=== PATIENT | male | born 1955 | race Caucasian/White ===

== ENCOUNTER 2018-06-12 09:25 | Emergency (ER) | payer BC ==
[2018-06-12] MEDS ORDERED: VALACYCLOVIR 500 MG TAB ONE (10:18)
[2018-06-12] MEDS ORDERED: SMZ./TMP. 800/160 MG TABLET ONE (10:18)
--- NOTE | 2018-06-12 10:38 | ER ---
Nurse's Notes [facility] Name: Genaro Trinh Age: 63 yrs Sex: Male : 1955 Arrival Date: 06/12/2018 Time: 09:30 Bed 13 Private MD: Jovanni Rehman Diagnosis: Zoster without complications;Irritant contact dermatitis Presentation: 06/12 09:53 Presenting complaint: Patient states: has had rash to right upper arm, and right iw shoulder, started , thought it was poison ana, very painful, tender to touch. Transition of care: patient was not received from another setting of care. Onset of symptoms was June 09, 2018. Risk Assessment: Do you want to hurt yourself or someone else? Patient reports no desire to harm self or others. Initial Sepsis Screen: Does the patient meet any 2 criteria? No. Patient's initial sepsis screen is negative. Does the patient have a suspected source of infection? Yes:. Care prior to arrival: None. 09:53 Method Of Arrival: Ambulatory iw 09:53 Acuity: LG 5 iw Historical: - Allergies: 09:57 NKA; iw - Home Meds: 09:57 lisinopril 20 mg Oral tab 1 tab once daily [Active]; Fish Oil 1,000 mg oral cap twice a iw day [Active]; niacin 500 mg Oral cpER [Active]; aspirin 81 mg Oral TbEC 1 tab once daily [Active]; - PMHx: 09:57 Hypertension; iw - PSHx: 09:57 Heart stents; Cholecystectomy; Appendectomy; iw - Immunization history:: Adult Immunizations not up to date. - Social history:: Smoking status: Patient/guardian denies using tobacco, the patient reports quitting approximately 16 years ago. - Ebola Screening: : Patient negative for fever greater than or equal to 101.5 degrees Fahrenheit, and additional compatible Ebola Virus Disease symptoms Patient denies exposure to infectious person Patient denies travel to an Ebola-affected area in the 21 days before illness onset No symptoms or risks identified at this time. - Family history:: not pertinent. Screenin:40 Abuse screen: Denies threats or abuse. Nutritional screening: No deficits noted. em Tuberculosis screening: No symptoms or risk factors identified. Fall Risk None identified. Assessment: 10:27 General: Appears in no apparent distress. comfortable, Behavior is calm, cooperative. em Pain: Complains of pain in right tricep and right antecubital area. Neuro: Level of Consciousness is awake, alert, obeys commands, Oriented to person, place, time, situation. Cardiovascular: Capillary refill < 3 seconds Patient's skin is warm and dry. Respiratory: Airway is patent Respiratory effort is even, unlabored, Respiratory pattern is regular, symmetrical, Breath sounds are clear bilaterally. GI: Abdomen is round non-distended. : No signs and/or symptoms were reported regarding the genitourinary system. EENT: No signs and/or symptoms were reported regarding the EENT system. Derm: Skin is intact, Rash noted that is itchy, red, on right tricep and right antecubital area painful. Musculoskeletal: Range of motion: intact in all extremities. 10:35 Reassessment: Patient appears in no apparent distress at this time. Patient and/or iw family updated on plan of care and expected duration. Pain level reassessed. I agree with above assessment by Christian May LVN. Vital Signs: 09:58 BP 176 / 81; Pulse 75; Resp 16; Temp 98.2; Pulse Ox 97% on R/A; Weight 78.93 kg; Height iw 5 ft. 4 in. (162.56 cm); Pain 9/10; 10:53 BP 156 / 85; Pulse 64; Resp 18; Pulse Ox 100% on R/A; Pain 7/10; em 09:58 Body Mass Index 29.87 (78.93 kg, 162.56 cm) iw ED Course: 09:30 Patient arrived in ED. mr 09:30 Jovanni Rehman MD is Private Physician. mr 09:48 Leroy Norris MD is Attending Physician. trevor 09:54 Triage completed. iw 09:58 Arm band placed on. iw 10:12 Polly Palacios, DICK is Primary Nurse. hb 10:26 EKG done, by ED staff, reviewed by Leroy Norris MD. em 10:38 Jovanni Rehman MD is Referral Physician. trevor 10:40 Patient has correct armband on for positive identification. Placed in gown. Bed in low em position. Call light in reach. Side rails up X2. 10:46 X-ray completed. Portable x-ray completed in exam room. Patient tolerated procedure tm4 well. 10:48 Chest Single View XRAY In Process Unspecified. EDMS 11:06 No provider procedures requiring assistance completed. Patient did not have IV access em during this emergency room visit. Administered Medications: 10:25 Drug: Bactrim (160 mg-800 mg (DS) 1 tablet Route: PO; em 11:00 Follow up: Response: No adverse reaction em 10:25 Drug: Valtrex 1000 mg Route: PO; em 11:00 Follow up: Response: No adverse reaction em Outcome: 10:38 Discharge ordered by MD. murray 11:06 Discharged to home ambulatory. em 11:06 Condition: good 11:06 Discharge instructions given to patient, Instructed on discharge instructions, follow up and referral plans. no drinking with medication, no driving heavy equipment, medication usage, Demonstrated understanding of instructions, follow-up care, medications, Prescriptions given X 5 11:06 Patient left the ED. em Signatures: Dispatcher [employer] EDMS Leroy Norris MD MD cha Rivera, Maria Kina Lynne tm4 Christian May, SPARE PERSON SPARE PERSON em Lisa Page, RN RN Polly Palacios, DICK RN
--- NOTE | 2018-06-12 10:39 | EDPHYS ---
Physician Documentation [facility] Name: Genaro Trinh Age: 63 yrs Sex: Male : 1955 Arrival Date: 06/12/2018 Time: 09:30 Bed 13 Private MD: Jovanni Rehman ED Physician Leroy Norirs HPI: 06/12 10:11 This 63 yrs old Male presents to ER via Ambulatory with complaints of Skin trevor Sore(s). 10:11 The patient or guardian complains of pain, a rash, tenderness. The complaints affect trevor the right antecubital area and right tricep. Context: The problem was sustained at an unknown location. Onset: The symptoms/episode began/occurred 3 day(s) ago. Treatment prior to arrival includes: no previous treatment. Modifying factors: The symptoms are alleviated by remaining still, the symptoms are aggravated by movement. The patient or guardian reports chest pain that is located primarily in the anterior chest wall, right. Onset: 3 day(s) ago. Historical: - Allergies: :57 NKA; iw - Home Meds: :57 lisinopril 20 mg Oral tab 1 tab once daily [Active]; Fish Oil 1,000 mg oral cap twice a iw day [Active]; niacin 500 mg Oral cpER [Active]; aspirin 81 mg Oral TbEC 1 tab once daily [Active]; - PMHx: :57 Hypertension; iw - PSHx: :57 Heart stents; Cholecystectomy; Appendectomy; iw - Immunization history:: Adult Immunizations not up to date. - Social history:: Smoking status: Patient/guardian denies using tobacco, the patient reports quitting approximately 16 years ago. - Ebola Screening: : Patient negative for fever greater than or equal to 101.5 degrees Fahrenheit, and additional compatible Ebola Virus Disease symptoms Patient denies exposure to infectious person Patient denies travel to an Ebola-affected area in the 21 days before illness onset No symptoms or risks identified at this time. - Family history:: not pertinent. ROS: 10:11 Constitutional: Negative for fever, chills, and weight loss, Eyes: Negative for injury, trevor pain, redness, and discharge, ENT: Negative for injury, pain, and discharge, Neck: Negative for injury, pain, and swelling, Cardiovascular: Negative for chest pain, palpitations, and edema, Respiratory: Negative for shortness of breath, cough, wheezing, and pleuritic chest pain, Abdomen/GI: Negative for abdominal pain, nausea, vomiting, diarrhea, and constipation, Back: Negative for injury and pain, : Negative for injury, bleeding, discharge, and swelling, Neuro: Negative for headache, weakness, numbness, tingling, and seizure, Psych: Negative for depression, anxiety, suicide ideation, homicidal ideation, and hallucinations, Allergy/Immunology: Negative for hives, rash, and allergies, Endocrine: Negative for neck swelling, polydipsia, polyuria, polyphagia, and marked weight changes, Hematologic/Lymphatic: Negative for swollen nodes, abnormal bleeding, and unusual bruising. 10:11 Skin: Positive for rash. Exam: 10:11 Constitutional: This is a well developed, well nourished patient who is awake, alert, trevor and in no acute distress. Head/Face: Normocephalic, atraumatic. Eyes: Pupils equal round and reactive to light, extra-ocular motions intact. Lids and lashes normal. Conjunctiva and sclera are non-icteric and not injected. Cornea within normal limits. Periorbital areas with no swelling, redness, or edema. ENT: Nares patent. No nasal discharge, no septal abnormalities noted. Tympanic membranes are normal and external auditory canals are clear. Oropharynx with no redness, swelling, or masses, exudates, or evidence of obstruction, uvula midline. Mucous membranes moist. Neck: Trachea midline, no thyromegaly or masses palpated, and no cervical lymphadenopathy. Supple, full range of motion without nuchal rigidity, or vertebral point tenderness. No Meningismus. Chest/axilla: Normal chest wall appearance and motion. Nontender with no deformity. No lesions are appreciated. Cardiovascular: Regular rate and rhythm with a normal S1 and S2. No gallops, murmurs, or rubs. Normal PMI, no JVD. No pulse deficits. Respiratory: Lungs have equal breath sounds bilaterally, clear to auscultation and percussion. No rales, rhonchi or wheezes noted. No increased work of breathing, no retractions or nasal flaring. Abdomen/GI: Soft, non-tender, with normal bowel sounds. No distension or tympany. No guarding or rebound. No evidence of tenderness throughout. Back: No spinal tenderness. No costovertebral tenderness. Full range of motion. Male : Normal genitalia with no discharge or lesions. MS/ Extremity: Pulses equal, no cyanosis. Neurovascular intact. Full, normal range of motion. Neuro: Awake and alert, GCS 15, oriented to person, place, time, and situation. Cranial nerves II-XII grossly intact. Motor strength 5/5 in all extremities. Sensory grossly intact. Cerebellar exam normal. Normal gait. Psych: Awake, alert, with orientation to person, place and time. Behavior, mood, and affect are within normal limits. 10:11 Skin: zoster. 10:39 Musculoskeletal/extremity: DVT Exam: no swelling, negative Homans' sign noted on exam, trevor no appreciated bluish discoloration, pain, tenderness, erythema, increased warmth. Vital Signs: 09:58 BP 176 / 81; Pulse 75; Resp 16; Temp 98.2; Pulse Ox 97% on R/A; Weight 78.93 kg; Height iw 5 ft. 4 in. (162.56 cm); Pain 9/10; 10:53 BP 156 / 85; Pulse 64; Resp 18; Pulse Ox 100% on R/A; Pain 7/10; em 09:58 Body Mass Index 29.87 (78.93 kg, 162.56 cm) iw MDM: 09:48 Patient medically screened. [facility] 10:11 Data reviewed: vital signs, nurses notes, EKG, radiologic studies, plain films. [facility] 06/12 10:10 Order name: Chest Single View XRAY [facility] 06/12 10:10 Order name: EKG; Complete Time: 10:10 [facility] 06/12 10:10 Order name: EKG - Nurse/Tech; Complete Time: 10:26 [facility] Administered Medications: 10:25 Drug: Bactrim (160 mg-800 mg (DS) 1 tablet Route: PO; em 11:00 Follow up: Response: No adverse reaction em 10:25 Drug: Valtrex 1000 mg Route: PO; em 11:00 Follow up: Response: No adverse reaction em Disposition: 06/12/18 10:38 Discharged to Home. Impression: Zoster without complications, Irritant contact dermatitis. - Condition is Stable. - Discharge Instructions: Contact Dermatitis, Poison Crimora Dermatitis, Shingles, Shingles, [id number], Contact Dermatitis, [id number]-[id number], Poison Crimora Dermatitis, [id number]. - Prescriptions for Hydroxyzine HCl 25 mg Oral Tablet - take 1 tablet by ORAL route every 6 hours As needed; 30 tablet. Tylenol- Codeine #3 300-30 mg Oral Tablet - take 2 tablet by ORAL route every 6 hours As needed; 30 tablet. Valtrex 1 g Oral Tablet - take 1 tablet by ORAL route every 8 hours for 7 days; 21 tablet. Bactrim DS 800- 160 mg Oral Tablet - take 1 tablet by ORAL route every 12 hours for 10 days; 20 tablet. Bactroban 2 % Topical Ointment - Apply to affected area 1 application by TOPICAL route every 12 hours; 30 gram. - Medication Reconciliation Form, Thank You Letter, Antibiotic Education, Prescription Opioid Use form. - Follow up: Jovanni Rehman; When: 2 - 3 days; Reason: Recheck today's complaints, Continuance of care, Re-evaluation by your physician. - Problem is new. - Symptoms have improved. Signatures: Dispatcher [employer] Leroy Caro MD MD cha Munoz, Edgar, TIRE CENTER MANAGER TIRE CENTER MANAGER em Lisa Page RN RN iw Corrections: (The following items were deleted from the chart) 11:06 10:38 06/12/2018 10:38 Discharged to Home. Impression: Zoster without complications; em Irritant contact dermatitis. Condition is Stable. Discharge Instructions: Contact Dermatitis, Poison Crimora Dermatitis, Shingles, Shingles, [id number]-[id number]-[id number], Contact Dermatitis, Lmtw-wt-Sldo, Poison Crimora Dermatitis, [id number]. Prescriptions for Hydroxyzine HCl 25 mg Oral Tablet - take 1 tablet by ORAL route every 6 hours As needed; 30 tablet, Tylenol-Codeine #3 300-30 mg Oral Tablet - take 2 tablet by ORAL route every 6 hours As needed; 30 tablet, Valtrex 1 g Oral Tablet - take 1 tablet by ORAL route every 8 hours for 7 days; 21 tablet, Bactrim DS 800-160 mg Oral Tablet - take 1 tablet by ORAL route every 12 hours for 10 days; 20 tablet. and Forms are Medication Reconciliation Form, Thank You Letter, Antibiotic Education, Prescription Opioid Use. Follow up: Jovanni Rehman; When: 2 - 3 days; Reason: Recheck today's complaints, Continuance of care, Re-evaluation by your physician. Problem is new. Symptoms have improved. trevor
[2018-06-12 11:10] VITALS: TEMP 98.2
[2018-06-12 11:11] VITALS: BP 156/85; O2SAT 100
--- NOTE | 2018-06-12 11:57 | RAD REPORT ---
EXAM DESCRIPTION: RAD - Chest Single View - 06/12/2018 10:48 am CLINICAL HISTORY: Right sided chest, shoulder and arm pain COMPARISON: August 2012 TECHNIQUE: AP portable chest image was obtained 1037 hours . FINDINGS: Lungs are clear. Heart and vasculature are normal. No measurable pleural effusion and no p neumothorax. No gross bony abnormality seen. No acute aortic findings suspected. IMPRESSION: No acute cardiopulmonary process. No significant interval change.
--- NOTE | 2018-06-13 07:41 | EKG ---
Test Date: 2018-06-12 Test Time: 10:19:34 Laser Beam Machine Operator: JIGNESH MEASUREMENT RESULTS: Intervals: Rate: 65 OR: 152 QRSD: 78 QT: 386 QTc: 401 [place]: P: 77 OR: 152 QRS: 68 T: 53 INTERPRETIVE STATEMENTS: Normal sinus rhythm Normal ECG Compared to ECG 04/08/2016 09:53:29 Sinus bradycardia no longer present Electronically Signed On 06-13-18 07:40:41 CDT by Saad Clay
== END 2018-06-12 11:06 | disposition home or self-care (01) ==
LOC: ER 09:25
DX: B02.9 Zoster without complications (principal); L24.9 Irritant contact dermatitis, unspecified cause; I10 Essential (primary) hypertension; Z79.82 Long term (current) use of aspirin; Z95.818 Presence of other cardiac implants and grafts
CPT/HCPCS: 71045; 93005; 99284

== ENCOUNTER 2018-07-12 05:43 | Emergency (ER) | payer BC ==
--- NOTE | 2018-07-12 06:22 | ER ---
Nurse's Notes [facility] Name: Genaro Trinh Age: 63 yrs Sex: Male : 1955 Arrival Date: 07/12/2018 Time: 05:44 Bed 5 Private MD: Jovanni Rehman Diagnosis: Dermatitis, unspecified-. Presentation: 07/12 05:53 Presenting complaint: Patient states: he has a rash on his L inner elbow and is aa1 concerned it may be shingles. States last time this happened it ended up being shingles and his PCP told him to have it checked right away if it happened again. Transition of care: patient was not received from another setting of care. Onset of symptoms was July 12, 2018. Risk Assessment: Do you want to hurt yourself or someone else? Patient reports no desire to harm self or others. Initial Sepsis Screen: Does the patient meet any 2 criteria? No. Patient's initial sepsis screen is negative. Does the patient have a suspected source of infection? No. Patient's initial sepsis screen is negative. Care prior to arrival: None. 05:53 Method Of Arrival: Ambulatory aa1 05:53 Acuity: LG 5 aa1 Historical: - Allergies: 05:57 NKA; aa1 - Home Meds: 05:57 aspirin 81 mg Oral TbEC 1 tab once daily [Active]; Fish Oil 1,000 mg Oral cap twice a aa1 day [Active]; lisinopril 20 mg Oral tab 1 tab once daily [Active]; niacin 500 mg Oral cpER [Active]; - PMHx: 05:57 Hypertension; aa1 - PSHx: 05:57 Heart stents; Cholecystectomy; Appendectomy; aa1 - Immunization history:: Flu vaccine is not up to date. - Social history:: Smoking status: Patient/guardian denies using tobacco, the patient reports quitting approximately 15 years ago. - Ebola Screening: : No symptoms or risks identified at this time. Screenin:58 Abuse screen: Denies threats or abuse. Denies injuries from another. Nutritional lp1 screening: No deficits noted. Tuberculosis screening: No symptoms or risk factors identified. Fall Risk None identified. Assessment: 05:54 General: Appears in no apparent distress. Behavior is calm, cooperative, appropriate lp1 for age. Pain: Denies pain. Neuro: Level of Consciousness is awake, alert, obeys commands. Cardiovascular: Patient's skin is warm and dry. Respiratory: No deficits noted. GI: No deficits noted. : No deficits noted. EENT: No deficits noted. Derm: Rash noted that is red, raised, Denies itching, burning, pain. Musculoskeletal: No deficits noted. Vital Signs: 05:57 BP 179 / 82; Pulse 70; Resp 16; Temp 98.0; Pulse Ox 96% on R/A; Weight 78.02 kg; Height aa1 5 ft. 5 in. (165.10 cm); Pain 0/10; 05:57 Body Mass Index 28.62 (78.02 kg, 165.10 cm) aa1 ED Course: 05:44 Patient arrived in ED. es 05:46 Rosio Schafer, RN is Primary Nurse. lp1 05:46 Jovanni Rehman MD is Private Physician. es 05:54 Mehran Banda MD is Attending Physician. tw4 05:54 Triage completed. aa1 05:57 Patient has correct armband on for positive identification. lp1 05:57 Patient placed in an exam room. aa1 05:57 No provider procedures requiring assistance completed. Patient did not have IV access lp1 during this emergency room visit. 06:03 Leroy Chavez [facility] is [facility]. cp 06:03 Mehran Banda MD is Attending Physician. cp Administered Medications: No medications were administered Outcome: 06:21 Discharge ordered by MD. cp 06:34 Discharged to home ambulatory. lp1 06:34 Condition: good 06:34 Discharge instructions given to patient, Instructed on discharge instructions, follow up and referral plans. medication usage, Demonstrated understanding of instructions, follow-up care, medications, Prescriptions given X 1. 06:34 Patient left the ED. lp1 Signatures: Starr Schaffer RN RN aa1 Kayla Patel Laura, RN RN lp1 Leroy Chavez PA PA cp Wadley, Terrence, MD MD tw4
--- NOTE | 2018-07-12 06:22 | EDPHYS ---
Physician Documentation [facility] Name: Genaro Trinh Age: 63 yrs Sex: Male : 1955 Arrival Date: 07/12/2018 Time: 05:44 Bed 5 Private MD: Jovanni Rehman ED Physician Mehran Banda HPI: 07/12 06:12 This 63 yrs old Male presents to ER via Ambulatory with complaints of Rash. cp 06:12 The patient's rash thought to be caused by an unknown cause. The rash is located on the cp antecubital area left arm. The rash can be described as erythematous. Onset: The symptoms/episode began/occurred last night. Associated signs and symptoms: Pertinent positives: burning sensation, Pertinent negatives: fever, itching. Severity of symptoms: in the emergency department the symptoms are unchanged. Historical: - Allergies: 05:57 NKA; aa1 - Home Meds: 05:57 aspirin 81 mg Oral TbEC 1 tab once daily [Active]; Fish Oil 1,000 mg Oral cap twice a aa1 day [Active]; lisinopril 20 mg Oral tab 1 tab once daily [Active]; niacin 500 mg Oral cpER [Active]; - PMHx: 05:57 Hypertension; aa1 - PSHx: 05:57 Heart stents; Cholecystectomy; Appendectomy; aa1 - Immunization history:: Flu vaccine is not up to date. - Social history:: Smoking status: Patient/guardian denies using tobacco, the patient reports quitting approximately 15 years ago. - Ebola Screening: : No symptoms or risks identified at this time. ROS: 06:15 Eyes: Negative for injury, pain, redness, and discharge. cp 06:15 Constitutional: Negative for body aches, chills, fever, poor PO intake. 06:15 ENT: Negative for drainage from ear(s), ear pain, sore throat, difficulty swallowing, difficulty handling secretions. 06:15 Cardiovascular: Negative for chest pain, edema, palpitations. 06:15 Respiratory: Negative for cough, shortness of breath, wheezing. 06:15 Abdomen/GI: Negative for abdominal pain, nausea, vomiting, and diarrhea. 06:15 Skin: Positive for rash, of the left antecubital area. 06:15 All other systems are negative. Exam: 06:16 Head/Face: Normocephalic, atraumatic. cp 06:16 Constitutional: The patient appears in no acute distress, alert, awake, non-diaphoretic, non-toxic, well developed, well nourished. 06:16 Eyes: Periorbital structures: appear normal, Conjunctiva: normal, Lids and lashes: appear normal, bilaterally. 06:16 ENT: External ear(s): are unremarkable, Nose: is normal, Mouth: Lips: moist, Oral mucosa: moist, Posterior pharynx: is normal, airway is patent, no erythema, no exudate. 06:16 Chest/axilla: Inspection: normal. 06:16 Cardiovascular: Rate: normal, Rhythm: regular. 06:16 Respiratory: the patient does not display signs of respiratory distress, Respirations: normal, no use of accessory muscles, no retractions, no splinting, no tachypnea, labored breathing, is not present. 06:16 Abdomen/GI: Exam negative for discomfort, distension, guarding, Inspection: abdomen appears normal. 06:16 Skin: rash can be described as erythematous, papular, raised, on the left antecubital area. Vital Signs: 05:57 BP 179 / 82; Pulse 70; Resp 16; Temp 98.0; Pulse Ox 96% on R/A; Weight 78.02 kg; Height aa1 5 ft. 5 in. (165.10 cm); Pain 0/10; 05:57 Body Mass Index 28.62 (78.02 kg, 165.10 cm) aa1 MDM: 05:54 Patient medically screened. tw4 06:18 Data reviewed: vital signs, nurses notes, and as a result, I will discharge patient. cp Administered Medications: No medications were administered Disposition: 07:06 Co-signature as Attending Physician, Leroy DELUCA I agree with the assessment and plan tw4 of care. Attestation: The patient's history, exam findings, diagnostics, and a summary of any interventions or procedures was reviewed in detail with Leroy DELUCA. Disposition: 07/12/18 06:21 Discharged to Home. Impression: Dermatitis, unspecified - .. - Condition is Stable. - Discharge Instructions: Rash. - Prescriptions for Triamcinolone Acetonide 0.5 % Topical Cream - apply 1 application by TOPICAL route 2 times per day As needed apply to area of rash as directed; 1 tube. - Medication Reconciliation Form, Thank You Letter, Antibiotic Education, Prescription Opioid Use form. - Follow up: Private Physician; When: 1 - 2 days; Reason: Recheck today's complaints. - Problem is new. - Symptoms are unchanged. Signatures: Starr Schaffer RN RN aa1 Rosio Schafer RN RN lp1 Leroy Chavez PA PA cp Wadley, Terrence, MD MD tw4 Corrections: (The following items were deleted from the chart) 06:34 06:21 07/12/2018 06:21 Discharged to Home. Impression: Dermatitis, unspecified - .. lp1 Condition is Stable. Forms are Medication Reconciliation Form, Thank You Letter, Antibiotic Education, Prescription Opioid Use. Follow up: Private Physician; When: 1 - 2 days; Reason: Recheck today's complaints. Problem is new. Symptoms are unchanged. cp
[2018-07-12 06:45] VITALS: BP 179/82; TEMP 98; O2SAT 96
== END 2018-07-12 06:34 | disposition home or self-care (01) ==
LOC: ER 05:43
DX: L30.9 Dermatitis, unspecified (principal); I10 Essential (primary) hypertension; Z79.82 Long term (current) use of aspirin; Z95.818 Presence of other cardiac implants and grafts
CPT/HCPCS: 99282

== ENCOUNTER 2019-04-18 07:19 | Day surgery (SDC) | payer BC, OTHER ==
--- NOTE | 2019-04-13 14:11 | RAD REPORT ---
EXAM DESCRIPTION: RAD - Chest Pa And Lat (2 Views) - 04/13/2019 2:03 pm CLINICAL HISTORY: Preop chest, pending cardiac catheterization, history of midline and left-sided ch est pain COMPARISON: May 2018 TECHNIQUE: PA and lateral views of the chest were obtained. FINDINGS: The lungs are clear of an acute lung parenchymal process. Interstitial pattern is similar to comparison. Heart size is normal and central vasculature is within normal limits. No pleural ef fusion or pneumothorax seen. No acute bony finding noted. No aortic abnormality. IMPRESSION: No acute cardiopulmonary process. No significant interval change.
[2019-04-13 14:58] LABS: Potassium 3.9 mmol/L (3.5-5.1)
[2019-04-14 08:47] LABS: Absolute Lymphocytes (CBC) 2.5 K/uL (0.7-4.9); Absolute Monocytes 0.7 K/uL (0.1-1.3); Absolute Neutrophil 4.3 K/uL (1.8-8.0); Basophils % 0.7 % (0-1.3); Eosinophils % 2.3 % (0-4.4); Hematocrit 47.2 % (39.6-49.0); Lymphocytes % 31.6 % (15.3-44.8); MPV 9.9 fL (7.6-11.3); Monocytes % 9.4 % (3.3-12.3); RBC Red Blood Cell Count 5.15 M/uL (4.33-5.43)
[2019-04-14 08:48] LABS: Protime INR 0.97
[2019-04-18] MEDS ORDERED: NA CHLORIDE 0.9% 500 ML ONE (07:59)
[2019-04-18] MEDS ORDERED: LIDOCAINE 1% 20 ML MDV ONE (08:36)
[2019-04-18] MEDS ORDERED: HEPA 1000U/500MLS 1,000 UNIT/500 ML BAG IV ONE (08:36)
[2019-04-18] MEDS ORDERED: MIDAZOLAM HCL 2 MG/2 ML INJ ONE (08:56)
[2019-04-18] MEDS ORDERED: FENTANYL CITR 100 MCG/2 ML ONE (08:57)
[2019-04-18] MEDS ORDERED: ATROPINE SULF 1 MG/10 ML SYR IV ONE (08:57)
[2019-04-18] MEDS ORDERED: NA CHLORIDE 0.9% 0 ML ONE (08:57)
[2019-04-18 10:29] VITALS: TEMP 97.6
[2019-04-18 10:54] VITALS: O2SAT 96
[2019-04-18 11:26] VITALS: BP 124/69
--- NOTE | 2019-04-18 17:51 | OP ---
Date of Procedure: 04/18/2019 Surgeon: Jakub Duran MD Indication: The patient is a 64-year-old, who is a patient of Dr. Rehman and mine with history of cor onary artery disease, multiple coronary artery stents in the past, abnormal stress test, chest pain, admitted as an outpatient for a heart catheterization. Procedures: Heart catheterization with selective coronary arteriogram. Procedure In Detail: He was prepped and draped in the routine sterile fashion, given 2 mg of Versed for IV sedation. Right common femoral artery access obtained with a 6-[place] sheath. Angiography th ere was normal. Angio-Seal was used to close the case. Coronary angiography done with left and righ t Andreas catheter showed multiple hkhe-lf-zeoocfuw plaquing areas throughout his coronaries, but no focal stenosis. All his stents were open. The patient tolerated the procedure well. There were no complications. Blood Loss: 5 cc. Anesthesia: Total conscious sedation is 30 minutes. Final Diagnosis: Moderate coronary artery disease. Plan: Plan is for medical therapy, may add a beta-monet to his regimen or Imdur depending how he f eels. He is already on niacin and fish oil. The patient will be going home today after 2 hours of b edrest. Nurses: Emiliano Lay and Ms. Pierre. CLAUDIA/ILDA Voice ID: [id number] Report ID: [id number]
== END 2019-04-18 10:39 | disposition home or self-care (01) ==
LOC: CCL 07:19
PROC: B201YZZ Plain Radiography of Multiple Coronary Arteries using Other Contrast (ICD-10-PCS; principal; 2019-04-18)
DX: I25.110 Atherosclerotic heart disease of native coronary artery with unstable angina pectoris (principal); I10 Essential (primary) hypertension; J44.9 Chronic obstructive pulmonary disease, unspecified; Z95.5 Presence of coronary angioplasty implant and graft; E78.6 Lipoprotein deficiency; Z87.891 Personal history of nicotine dependence; Z82.49 Family history of ischemic heart disease and other diseases of the circulatory system
CPT/HCPCS: 36415; 71046; 80048; 85025; 85610; 85730; 93454; C1760; C1893; J0583; J2250; J3010

== ENCOUNTER 2019-11-30 13:51 | Emergency (ER) | payer BC, OTHER ==
[2019-11-30] MEDS ORDERED: NA CHLORIDE 0.9% 1,000 ML ONE (14:41)
[2019-11-30 14:47] LABS: Absolute Lymphocytes (CBC) 1.3 K/uL (0.7-4.9); Basophils % 0.5 % (0-1.3); Hematocrit 46.6 % (39.6-49.0); Lymphocytes % 11.8 % (15.3-44.8); MPV 9.7 fL (7.6-11.3); RBC Red Blood Cell Count 5.08 M/uL (4.33-5.43)
--- NOTE | 2019-11-30 14:52 | RAD REPORT ---
EXAM DESCRIPTION: CT - Head Brain Wo Cont - 11/30/2019 2:37 pm CLINICAL HISTORY: Syncope COMPARISON: None. TECHNIQUE: Axial 5 mm thick images of the head were obtained without IV contrast. All CT scans are performed using dose optimization technique as appropriate and may include automated exposure control or mA/KV adjustment according to patient size. FINDINGS: No intracranial hemorrhage, mass, edema or shift of mid-line structures. No acute infarcti on changes seen. No abnormal extra-axial fluid collections. Ventricles are normal. Mastoid air cells and visualized portions of the paranasal sinuses are clear. No acute bony findings. IMPRESSION: Negative non-contrast CT head examination.
[2019-11-30 14:54] LABS: Protime INR 1.04
--- NOTE | 2019-11-30 14:56 | RAD REPORT ---
EXAM DESCRIPTION: RAD - Chest Single View - 11/30/2019 2:28 pm CLINICAL HISTORY: Cough, syncope COMPARISON: March 2019 TECHNIQUE: AP portable chest image was obtained 1421 hours . FINDINGS: Lungs are clear. Heart and vasculature are normal. No measurable pleural effusion and no p neumothorax. No acute bony abnormality seen. No acute aortic findings suspected. IMPRESSION: No acute cardiopulmonary process.
[2019-11-30 15:06] LABS: ALT/SGPT 36 U/L (12-78); AST/SGOT 22 U/L (15-37); Albumin 4.1 g/dL (3.4-5.0); Alkaline Phosphatase 36 U/L (45-117); BUN Blood Urea Nitrogen 15 mg/dL (7-18); Bicarbonate 28 mmol/L (21-32); Bilirubin Direct 0.2 mg/dL (0-0.2); Glucose Level 127 mg/dL (74-106); Magnesium 2.3 mg/dL (1.8-2.4); NT PRO-BNP 56 pg/mL (<125); Potassium 4.1 mmol/L (3.5-5.1); Protein, Total 7.9 g/dL (6.4-8.2); Sodium Level 141 mmol/L (136-145); Troponin (Emerg Dept Use Only) < 0.02 ng/mL (0.0-0.045)
[2019-11-30] MEDS ORDERED: ONDANSETRON 4 MG/2 ML VIAL ONE (15:21)
[2019-11-30] MEDS ORDERED: MECLIZINE HCL 12.5 MG TAB ONE (15:21)
--- NOTE | 2019-11-30 16:13 | ER ---
Nurse's Notes [facility] Name: Genaro Trinh Age: 64 yrs Sex: Male : 1955 Arrival Date: 11/30/2019 Time: 13:53 Bed 15 Private MD: Simona Penn Diagnosis: Syncope and collapse-near;Dizziness and giddiness;Essential (primary) hypertension;Bradycardia, unspecified Presentation: 11/30 13:54 Presenting complaint: Patient states: Was at work, and around 1030 am today I passed sg out and dont remember how I got back to my office. Transition of care: patient was not received from another setting of care. Onset of symptoms was November 30, 2019. Risk Assessment: Do you want to hurt yourself or someone else? Patient reports no desire to harm self or others. Initial Sepsis Screen: Does the patient meet any 2 criteria? No. Patient's initial sepsis screen is negative. Does the patient have a suspected source of infection? No. Patient's initial sepsis screen is negative. Care prior to arrival: None. 13:54 Method Of Arrival: Wheelchair sg 13:54 Acuity: LG 2 sg Historical: - Allergies: 13:54 NKA; sg - PMHx: 13:54 Hypertension; sg - PSHx: 13:54 Heart stents; Cholecystectomy; Appendectomy; sg - Immunization history:: Adult Immunizations up to date. - Social history:: Smoking status: Patient/guardian denies using tobacco. - Ebola Screening: : Patient negative for fever greater than or equal to 101.5 degrees Fahrenheit, and additional compatible Ebola Virus Disease symptoms Patient denies exposure to infectious person Patient denies travel to an Ebola-affected area in the 21 days before illness onset No symptoms or risks identified at this time. - Family history:: not pertinent. Screenin:50 Abuse screen: Denies threats or abuse. Denies injuries from another. Nutritional ph screening: No deficits noted. Tuberculosis screening: No symptoms or risk factors identified. Fall Risk None identified. Assessment: 14:35 General: Appears in no apparent distress. comfortable, well groomed, Behavior is calm, ph cooperative, appropriate for age, Denies fever, feeling ill. Pain: Denies pain. Neuro: Level of Consciousness is awake, alert, obeys commands, Oriented to person, place, time, situation, Mold Washer are equal bilaterally Moves all extremities. Full function Speech is normal, Reports dizziness, a syncopal episode Denies weakness blurred vision. Cardiovascular: Reports lightheadedness, nausea, vomiting, Denies chest pain, shortness of breath, vomiting, Capillary refill < 3 seconds in bilateral fingers Patient's skin is warm and dry. Respiratory: Airway is patent Respiratory effort is even, labored, Respiratory pattern is regular, symmetrical. GI: Reports nausea, Patient currently denies abdominal pain. Derm: Skin is intact, is healthy with good turgor, Skin is pink, warm \T\ dry. Musculoskeletal: Circulation, motion, and sensation intact. Range of motion: intact in all extremities. 15:49 Reassessment: ECHO at bedside. ph 17:00 Reassessment: Patient appears in no apparent distress at this time. Patient and/or ph family updated on plan of care and expected duration. Pain level reassessed. Patient is alert, oriented x 3, equal unlabored respirations, skin warm/dry/pink. Pt reports that nausea has resolved and that dizziness is improving, d/c pending ECHO results, family at bedside. Vital Signs: 14:01 BP 160 / 77; Pulse 62; Resp 17; Temp 97.8; Pulse Ox 100% on R/A; Weight 79.38 kg; sg Height 5 ft. 7 in. (170.18 cm); Pain 7/10; 15:00 BP 159 / 76; Pulse 54; Resp 18; Pulse Ox 98% on R/A; ph 15:53 BP 164 / 78; Pulse 50; Resp 18; Pulse Ox 96% on R/A; ph 14:01 Body Mass Index 27.41 (79.38 kg, 170.18 cm) ED Course: 13:53 Patient arrived in ED. am2 13:53 Daniel Norton MD is Private Physician. am2 13:53 Simona Penn FNP-C is Private Physician. am2 13:54 Arm band placed on. sg 14:06 Triage completed. sg 14:10 Leroy Norris MD is Attending Physician. [facility] 14:25 Elsie Sims RN is Primary Nurse. ph 14:27 Initial lab(s) drawn, by me, sent to lab. Inserted saline lock: 20 gauge in right ca1 antecubital area, using aseptic technique. Blood collected. 14:28 XRAY Chest (1 view) In Process Unspecified. EDMS 14:38 CT Head Brain wo Cont In Process Unspecified. EDMS 15:31 US Carotid Artery Bilateral In Process Unspecified. EDMS 15:51 Patient has correct armband on for positive identification. Bed in low position. Call ph light in reach. Side rails up X2. laboratory monitor on. Pulse ox on. NIBP on. Door closed. Noise minimized. Warm blanket given. 16:14 Saad Clay MD is Referral Physician. trevor 17:35 No provider procedures requiring assistance completed. IV discontinued, intact, ph bleeding controlled, No redness/swelling at site. Pressure dressing applied. Administered Medications: 16:00 Drug: NS 0.9% 1000 ml Route: IV; Rate: 1 bolus; Site: right antecubital; ph 17:20 Follow up: Response: No adverse reaction; IV Status: Completed infusion ph 16:00 Drug: Zofran 4 mg Route: IVP; Site: right antecubital; ph 16:30 Follow up: Response: No adverse reaction; Nausea is decreased ph 16:10 Drug: Meclizine 50 mg Route: PO; ph 17:00 Follow up: Response: No adverse reaction ph 17:12 Drug: Aspirin 162 mg Route: PO; ca1 17:30 Follow up: Response: No adverse reaction ph Outcome: 16:12 Discharge ordered by MD. trevor 17:39 Patient left the ED. ph 17:39 Discharged to home via wheelchair, with family. ph 17:39 Condition: improved 17:39 Discharge instructions given to patient, Instructed on discharge instructions, follow up and referral plans. medication usage, Demonstrated understanding of instructions, follow-up care, medications, Prescriptions given X 1. Signatures: Dispatcher [employer] EDMS Vance Torres RN RN sg Anderson, Corey, MD MD cha Hall, Patricia, RN RN ph Jaky Riley am2 Jessica Seaman RN RN ca1 Corrections: (The following items were deleted from the chart) 18:03 17:00 Reassessment: Patient appears in no apparent distress at this time. Patient ph and/or family updated on plan of care and expected duration. Pain level reassessed. Patient is alert, oriented x 3, equal unlabored respirations, skin warm/dry/pink. Pt reports that nausea has resolved and that dizziness is improving, awaiting ECHO results, family at bedside ph
--- NOTE | 2019-11-30 16:13 | EDPHYS ---
Physician Documentation [facility] Name: Genaro Trinh Age: 64 yrs Sex: Male : 1955 Arrival Date: 11/30/2019 Time: 13:53 Bed 15 Private MD: Simona Penn ED Physician Leroy Norris HPI: 11/30 14:54 This 64 yrs old Male presents to ER via Wheelchair with complaints of Passed trevor Out Prior To Arrival. 14:54 The patient has experienced syncope, collapsed, The patient has experienced trevor near-syncope. Onset: The symptoms/episode began/occurred just prior to arrival, this morning. Duration: This was a single episode, that lasted an unknown period of time. Context: occurred at work. Associated injury: The patient did not suffer any apparent associated injury. Associated signs and symptoms: Pertinent positives: dizziness, lightheadedness. The patient has not experienced similar symptoms in the past. Historical: - Allergies: 13:54 NKA; sg - PMHx: 13:54 Hypertension; sg - PSHx: 13:54 Heart stents; Cholecystectomy; Appendectomy; sg - Immunization history:: Adult Immunizations up to date. - Social history:: Smoking status: Patient/guardian denies using tobacco. - Ebola Screening: : Patient negative for fever greater than or equal to 101.5 degrees Fahrenheit, and additional compatible Ebola Virus Disease symptoms Patient denies exposure to infectious person Patient denies travel to an Ebola-affected area in the 21 days before illness onset No symptoms or risks identified at this time. - Family history:: not pertinent. ROS: 14:54 Constitutional: Negative for fever, chills, and weight loss, Eyes: Negative for injury, trevor pain, redness, and discharge, ENT: Negative for injury, pain, and discharge, Neck: Negative for injury, pain, and swelling, Cardiovascular: Negative for chest pain, palpitations, and edema, Respiratory: Negative for shortness of breath, cough, wheezing, and pleuritic chest pain, Abdomen/GI: Negative for abdominal pain, nausea, vomiting, diarrhea, and constipation, Back: Negative for injury and pain, : Negative for injury, bleeding, discharge, and swelling, MS/Extremity: Negative for injury and deformity, Skin: Negative for injury, rash, and discoloration, Psych: Negative for depression, anxiety, suicide ideation, homicidal ideation, and hallucinations, Allergy/Immunology: Negative for hives, rash, and allergies, Endocrine: Negative for neck swelling, polydipsia, polyuria, polyphagia, and marked weight changes, Hematologic/Lymphatic: Negative for swollen nodes, abnormal bleeding, and unusual bruising. 14:54 Neuro: Positive for dizziness. Exam: 14:54 Constitutional: This is a well developed, well nourished patient who is awake, alert, trevor and in no acute distress. Head/Face: Normocephalic, atraumatic. Eyes: Pupils equal round and reactive to light, extra-ocular motions intact. Lids and lashes normal. Conjunctiva and sclera are non-icteric and not injected. Cornea within normal limits. Periorbital areas with no swelling, redness, or edema. ENT: Nares patent. No nasal discharge, no septal abnormalities noted. Tympanic membranes are normal and external auditory canals are clear. Oropharynx with no redness, swelling, or masses, exudates, or evidence of obstruction, uvula midline. Mucous membranes moist. Neck: Trachea midline, no thyromegaly or masses palpated, and no cervical lymphadenopathy. Supple, full range of motion without nuchal rigidity, or vertebral point tenderness. No Meningismus. Chest/axilla: Normal chest wall appearance and motion. Nontender with no deformity. No lesions are appreciated. Cardiovascular: Regular rate and rhythm with a normal S1 and S2. No gallops, murmurs, or rubs. Normal PMI, no JVD. No pulse deficits. Respiratory: Lungs have equal breath sounds bilaterally, clear to auscultation and percussion. No rales, rhonchi or wheezes noted. No increased work of breathing, no retractions or nasal flaring. Abdomen/GI: Soft, non-tender, with normal bowel sounds. No distension or tympany. No guarding or rebound. No evidence of tenderness throughout. Back: No spinal tenderness. No costovertebral tenderness. Full range of motion. Male : Normal genitalia with no discharge or lesions. Skin: Warm, dry with normal turgor. Normal color with no rashes, no lesions, and no evidence of cellulitis. MS/ Extremity: Pulses equal, no cyanosis. Neurovascular intact. Full, normal range of motion. Neuro: Awake and alert, GCS 15, oriented to person, place, time, and situation. Cranial nerves II-XII grossly intact. Motor strength 5/5 in all extremities. Sensory grossly intact. Cerebellar exam normal. Normal gait. Psych: Awake, alert, with orientation to person, place and time. Behavior, mood, and affect are within normal limits. Vital Signs: 14:01 BP 160 / 77; Pulse 62; Resp 17; Temp 97.8; Pulse Ox 100% on R/A; Weight 79.38 kg; sg Height 5 ft. 7 in. (170.18 cm); Pain 7/10; 15:00 BP 159 / 76; Pulse 54; Resp 18; Pulse Ox 98% on R/A; ph 15:53 BP 164 / 78; Pulse 50; Resp 18; Pulse Ox 96% on R/A; ph 14:01 Body Mass Index 27.41 (79.38 kg, 170.18 cm) sg MDM: 14:10 Patient medically screened. [facility] 14:58 Data reviewed: vital signs, nurses notes, lab test result(s), EKG, radiologic studies, trevor plain films. 11/30 14:13 Order name: Basic Metabolic Panel; Complete Time: 16:08 [facility] 11/30 14:13 Order name: CBC with Diff; Complete Time: 14:54 [facility] 11/30 14:13 Order name: LFT's; Complete Time: 16:08 [facility] 11/30 14:13 Order name: Magnesium; Complete Time: 16:08 [facility] 11/30 14:13 Order name: NT PRO-BNP; Complete Time: 16:08 [facility] 11/30 14:13 Order name: PT-INR; Complete Time: 16:08 [facility] 11/30 14:13 Order name: Troponin (emerg Dept Use Only); Complete Time: 16:08 [facility] 11/30 14:13 Order name: XRAY Chest (1 view); Complete Time: 16:08 [facility] 11/30 14:13 Order name: CT Head Brain wo Cont; Complete Time: 14:54 [facility] 11/30 14:13 Order name: Urine Culture [facility] 11/30 14:54 Order name: US Carotid Artery Bilateral; Complete Time: 17:19 [facility] 11/30 14:58 Order name: Echo w/ Doppler [facility] 11/30 17:02 Order name: Urine Dipstick--Ancillary (enter results); Complete Time: 17:19 11/30 14:13 Order name: EKG; Complete Time: 14:14 [facility] 11/30 14:13 Order name: Cardiac monitoring; Complete Time: 16:12 [facility] 11/30 14:13 Order name: EKG - Nurse/Tech; Complete Time: 16:12 [facility] 11/30 14:13 Order name: IV Saline Lock; Complete Time: 16:12 [facility] 11/30 14:13 Order name: Labs collected and sent; Complete Time: 16:13 [facility] 11/30 14:13 Order name: O2 Per Protocol; Complete Time: 16:13 [facility] 11/30 14:13 Order name: O2 Sat Monitoring; Complete Time: 17:07 [facility] 11/30 14:13 Order name: Urine Dipstick-Ancillary (obtain specimen); Complete Time: 17:07 [facility] Administered Medications: 16:00 Drug: NS 0.9% 1000 ml Route: IV; Rate: 1 bolus; Site: right antecubital; ph 17:20 Follow up: Response: No adverse reaction; IV Status: Completed infusion ph 16:00 Drug: Zofran 4 mg Route: IVP; Site: right antecubital; ph 16:30 Follow up: Response: No adverse reaction; Nausea is decreased ph 16:10 Drug: Meclizine 50 mg Route: PO; ph 17:00 Follow up: Response: No adverse reaction ph 17:12 Drug: Aspirin 162 mg Route: PO; ca1 17:30 Follow up: Response: No adverse reaction ph Disposition: 11/30/19 16:12 Discharged to Home. Impression: Syncope and collapse - near, Dizziness and giddiness, Essential (primary) hypertension, Bradycardia, unspecified. - Condition is Stable. - Discharge Instructions: Bradycardia, Adult, Dizziness, Hypertension, Near-Syncope, Syncope, Weakness, Near-Syncope, Ufyl-vs-Qvpt, Hypertension, Cxxi-tq-Mswc, Syncope, Zxft-tx-Dumg, Weakness, Sfam-yz-Bfcl, Aspirin and Your Heart, Dizziness, Iimj-dc-Rjzd, Managing Your Hypertension. - Prescriptions for Meclizine 25 mg Oral Tablet - take 1 tablet by ORAL route every 8 hours As needed; 30 tablet. - Medication Reconciliation Form, Thank You Letter, Antibiotic Education, Prescription Opioid Use, Work release form form. - Follow up: Private Physician; When: 2 - 3 days; Reason: Recheck today's complaints, Continuance of care, Re-evaluation by your physician. Follow up: Saad Clay MD; When: 2 - 3 days; Reason: Recheck today's complaints, Continuance of care, Re-evaluation by your physician. - Problem is new. - Symptoms have improved. Signatures: Dispatcher [employer] EDMS Vance Torres RN RN sg Anderson, Corey, MD MD cha Hall, Patricia, RN RN Urszula, DICK Lopez RN [facility] Corrections: (The following items were deleted from the chart) 16:14 16:12 11/30/2019 16:12 Discharged to Home. Impression: Syncope and collapse - near; trevor Dizziness and giddiness; Essential (primary) hypertension. Condition is Stable. Forms are Medication Reconciliation Form, Thank You Letter, Antibiotic Education, Prescription Opioid Use. Follow up: Private Physician; When: 2 - 3 days; Reason: Recheck today's complaints, Continuance of care, Re-evaluation by your physician. Problem is new. Symptoms have improved. trevor 16:22 16:14 11/30/2019 16:12 Discharged to Home. Impression: Syncope and collapse - near; trevor Dizziness and giddiness; Essential (primary) hypertension. Condition is Stable. Discharge Instructions: Dizziness, Hypertension, Near-Syncope, Syncope, Weakness, Near-Syncope, Pvgu-qj-Gnqh, Hypertension, Qoye-cv-Whex, Syncope, Lzry-fj-Qzvj, Weakness, Kbsp-az-Fbky, Aspirin and Your Heart, Dizziness, Juee-ut-Cnki, Managing Your Hypertension. Prescriptions for Meclizine 25 mg Oral Tablet - take 1 tablet by ORAL route every 8 hours As needed; 30 tablet. and Forms are Medication Reconciliation Form, Thank You Letter, Antibiotic Education, Prescription Opioid Use. Follow up: Private Physician; When: 2 - 3 days; Reason: Recheck today's complaints, Continuance of care, Re-evaluation by your physician. Follow up: Saad Clay; When: 2 - 3 days; Reason: Recheck today's complaints, Continuance of care, Re-evaluation by your physician. Problem is new. Symptoms have improved. trevor 17:39 16:22 11/30/2019 16:12 Discharged to Home. Impression: Syncope and collapse - near; ph Dizziness and giddiness; Essential (primary) hypertension; Bradycardia, unspecified. Condition is Stable. Discharge Instructions: Dizziness, Hypertension, Near-Syncope, Syncope, Weakness, Near-Syncope, Hysg-tp-Gmha, Hypertension, Beto-af-Lonc, Syncope, Wuoi-pz-Tjya, Weakness, Lava-ns-Oyrs, Aspirin and Your Heart, Dizziness, Xges-os-Njnj, Managing Your Hypertension. Prescriptions for Meclizine 25 mg Oral Tablet - take 1 tablet by ORAL route every 8 hours As needed; 30 tablet. and Forms are Medication Reconciliation Form, Thank You Letter, Antibiotic Education, Prescription Opioid Use. Follow up: Private Physician; When: 2 - 3 days; Reason: Recheck today's complaints, Continuance of care, Re-evaluation by your physician. Follow up: Saad Clay; When: 2 - 3 days; Reason: Recheck today's complaints, Continuance of care, Re-evaluation by your physician. Problem is new. Symptoms have improved. trevor
--- NOTE | 2019-11-30 16:18 | RAD REPORT ---
EXAM DESCRIPTION: US - CP - 11/30/2019 3:54 pm CLINICAL HISTORY: DIZZINESS Headache, drowsiness COMPARISON: No comparisons TECHNIQUE: Real-time sonographic evaluation of both carotid systems was performed. Doppler interroga tion was performed with waveform tracing bilaterally. FINDINGS: Normal high resistance waveforms are noted in both external carotid arteries. The common c arotid arteries and internal carotid arteries show normal low resistance waveforms. Mild hard plaque is seen involving both carotid bulbs. Peak systolic and end diastolic velocity value s and the ICA/CCA ratios are in the non-hemodynamically significant range. Antegrade flow seen in both vertebral arteries. IMPRESSION: Mild hard plaque is seen in both carotid bulbs. No evidence of a hemodynamically significant stenosis.
[2019-11-30 17:07] LABS: Urine Blood NEGATIVE (NEG); Urine Glucose NEGATIVE (NEG); Urine Protein NEGATIVE (NEG); Urine pH 6.5 (5.0-7.0)
[2019-11-30] MEDS ORDERED: ASPIRIN 81 MG CHEWABLE TABLET ONE (17:13)
[2019-11-30 18:27] VITALS: TEMP 98.7
[2019-11-30 18:43] VITALS: BP 164/78; O2SAT 96
--- NOTE | 2019-12-01 08:12 | ECHO ---
HEIGHT: 5 ft 7 in WEIGHT: 175 lb 0 oz DATE OF STUDY: 11/30/[address]: Leroy Norris MD 2-DIMENSIONAL: YES M.MODE: YES DOPPLER: YES COLOR FLOW: YES TDS: NO PORTABLE: NO DEFINITY: NO BUBBLE STUDY: NO DIAGNOSIS: SYNCOPE CARDIAC HISTORY: CATHERIZATION: YES SURGERY: NO PROSTHETIC VALVE: NO PACEMAKER: NO MEASUREMENTS (cm) DIASTOLIC (NORMALS) SYSTOLIC (NORMALS) IVSd 1.1 (0.6-1.2) LA Diam 3.6 (1.9-4.0) LVEF 69% LVIDd 4.6 (3.5-5.7) LVIDs 2.8 (2.0-3.5) %FS 38% LVPWd 0.7 (0.6-1.2) Ao Diam 2.3 (2.0-3.7) 2 DIMENSIONAL ASSESSMENT: RIGHT ATRIUM: NORMAL LEFT ATRIUM: NORMAL RIGHT VENTRICLE: NORMAL LEFT VENTRICLE: NORMAL TRICUSPID VALVE: NORMAL MITRAL VALVE: NORMAL PULMONIC VALVE: NORMAL AORTIC VALVE: NORMAL PERICARDIAL EFFUSION: NONE AORTIC ROOT: NORMAL LEFT VENTRICULAR WALL MOTION: NORMAL DOPPLER/COLOR FLOW: NORMAL COMMENTS: NORMAL 2D ECHOCARDIOGRAM WITH DOPPLER TECHNOLOGIST: Wan GAMBOA
--- NOTE | 2019-12-01 12:21 | EKG ---
Test Date: 2019-11-30 Test Time: 16:18:31 Medical Technologist: DEYSI MEASUREMENT RESULTS: Intervals: Rate: 52 CO: 118 QRSD: 68 QT: 438 QTc: 407 Tranquillity: P: 75 CO: 118 QRS: 64 T: 73 INTERPRETIVE STATEMENTS: Sinus bradycardia Otherwise normal ECG Compared to ECG 06/12/2018 10:19:34 Sinus rhythm no longer present Electronically Signed On 12-01-19 12:20:50 [employer] by Saad Clay
== END 2019-11-30 17:39 | disposition home or self-care (01) ==
LOC: ER 13:51
DX: R42 Dizziness and giddiness (principal); I10 Essential (primary) hypertension; R00.1 Bradycardia, unspecified; Z95.818 Presence of other cardiac implants and grafts
CPT/HCPCS: 96361; 93005; 93306; 85025; 87086; 80048; 36415; 83735; 85610; 80076; 81003; 84484; 83880; 70450; 71045; 93880; 96374; 99284; J7030; J2405; 87088; J8597

== ENCOUNTER 2019-12-21 08:28 | Emergency (ER) | payer BC, OTHER ==
--- NOTE | 2019-12-21 10:58 | RAD REPORT ---
EXAM DESCRIPTION: CT - Stone Protocol - 12/21/2019 10:25 am CLINICAL HISTORY: Abdominal pain. COMPARISON: None. TECHNIQUE: Computed axial tomography of the abdomen pelvis was obtained without oral or IV contrast. Lack of IV and oral contrast limits evaluation of solid organs, bowel, and vessels. Coronal reformat mabel images were obtained and reviewed. All CT scans are performed using dose optimization technique as appropriate and may include automated exposure control or mA/KV adjustment according to patient size. FINDINGS: A renal calculus is not seen. An ureteral calculus is not noted. A bladder calculus is not present. The liver, pancreas and adrenals appear grossly normal Splenic granulomata. Cholecystectomy. 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 Appendectomy. Vascular calcifications Inguinal hernias contain fat. The prostate gland is mildly to moderately enlarged IMPRESSION: Negative for a genitourinary calculus
--- NOTE | 2019-12-21 11:34 | EDPHYS ---
Physician Documentation [facility] Name: Genaro Trinh Age: 64 yrs Sex: Male : 1955 Arrival Date: 12/21/2019 Time: 08:32 Bed 18 Private MD: ED Physician Higinio Richardson HPI: 12/21 11:26 This 64 yrs old Male presents to ER via Ambulatory with complaints of snw Abdominal Problem. 11:26 The patient presents with abdominal pain right lower quadrant. Onset: The snw symptoms/episode began/occurred gradually, 1 year(s) ago, and became worse 6 week(s) ago. The symptoms do not radiate. Associated signs and symptoms: none. The symptoms are described as burning, shooting. Severity of pain: At its worst the pain was moderate. The patient has experienced similar episodes in the past. The patient has not recently seen a physician. pt was told he had post herpetic neuropathy. Historical: - Allergies: 08:46 NKA; ss - PMHx: 08:46 Hypertension; ss - PSHx: 08:46 Heart stents; Cholecystectomy; Appendectomy; ss - Immunization history:: Adult Immunizations up to date. - Coronavirus screen:: The patient has NOT traveled to [place], [place], or [place] in the past 14 days. Proceed with normal triage process as indicated. - Social history:: Smoking status: Patient/guardian denies using tobacco, but has a distant history of tobacco abuse. - Ebola Screening: : Patient denies exposure to infectious person Patient denies travel to an Ebola-affected area in the 21 days before illness onset. ROS: 10:14 Constitutional: Negative for fever, chills, and weight loss, Eyes: Negative for injury, snw pain, redness, and discharge, ENT: Negative for injury, pain, and discharge, Neck: Negative for injury, pain, and swelling, Cardiovascular: Negative for chest pain, palpitations, and edema, Respiratory: Negative for shortness of breath, cough, wheezing, and pleuritic chest pain, Abdomen/GI: Negative for nausea, vomiting, diarrhea, and constipation, +abdominal pain - chronic x 1 yr, worse post sneezing 4-5 weeks ago Back: Negative for injury and pain, : Negative for injury, bleeding, discharge, and swelling, MS/Extremity: Negative for injury and deformity, Skin: Negative for injury, rash, and discoloration, Neuro: Negative for headache, weakness, numbness, tingling, and seizure. Exam: 10:13 Constitutional: This is a well developed, well nourished patient who is awake, alert, snw and in no acute distress. Head/Face: Normocephalic, atraumatic. Eyes: Pupils equal round and reactive to light, extra-ocular motions intact. Lids and lashes normal. Conjunctiva and sclera are non-icteric and not injected. Cornea within normal limits. Periorbital areas with no swelling, redness, or edema. ENT: Nares patent. No nasal discharge, no septal abnormalities noted. Tympanic membranes are normal and external auditory canals are clear. Oropharynx with no redness, swelling, or masses, exudates, or evidence of obstruction, uvula midline. Mucous membranes moist. Neck: Trachea midline, no thyromegaly or masses palpated, and no cervical lymphadenopathy. Supple, full range of motion without nuchal rigidity, or vertebral point tenderness. No Meningismus. Chest/axilla: Normal chest wall appearance and motion. Nontender with no deformity. No lesions are appreciated. Cardiovascular: Regular rate and rhythm with a normal S1 and S2. No gallops, murmurs, or rubs. Normal PMI, no JVD. No pulse deficits. Respiratory: Lungs have equal breath sounds bilaterally, clear to auscultation and percussion. No rales, rhonchi or wheezes noted. No increased work of breathing, no retractions or nasal flaring. Back: No spinal tenderness. No costovertebral tenderness. Full range of motion. Skin: Warm, dry with normal turgor. Normal color with no rashes, no lesions, and no evidence of cellulitis. MS/ Extremity: Pulses equal, no cyanosis. Neurovascular intact. Full, normal range of motion. Neuro: Awake and alert, GCS 15, oriented to person, place, time, and situation. Cranial nerves II-XII grossly intact. Motor strength 5/5 in all extremities. Sensory grossly intact. Cerebellar exam normal. Normal gait. Psych: Awake, alert, with orientation to person, place and time. Behavior, mood, and affect are within normal limits. 10:13 Psych: Awake, alert, with orientation to person, place and time. Behavior, mood, and affect are within normal limits. 10:13 Abdomen/GI: Inspection: abdomen appears normal, Bowel sounds: normal, Palpation: moderate abdominal tenderness, in the right lower quadrant. Vital Signs: 08:46 BP 179 / 97; Pulse 84; Resp 16; Temp 97.6(O); Pulse Ox 96% on R/A; Weight 80.74 kg; ss Height 5 ft. 3 in. (160.02 cm); Pain 8/10; 09:45 BP 171 / 118; Pulse 81; Resp 19; Pulse Ox 96% on R/A; Pain 8/10; rb1 10:45 BP 190 / 85; Pulse 88; Resp 18; Pulse Ox 95% on R/A; Pain 8/10; rb1 11:45 BP 173 / 94; Pulse 86; Resp 17; Pulse Ox 97% on R/A; rb1 08:46 Body Mass Index 31.53 (80.74 kg, 160.02 cm) ss MDM: 09:42 Patient medically screened. snw 11:38 Data reviewed: vital signs, nurses notes. Data interpreted: Pulse oximetry: on room air snw is 95 %. Interpretation: acceptable. Counseling: I had a detailed discussion with the patient and/or guardian regarding: the historical points, exam findings, and any diagnostic results supporting the discharge/admit diagnosis, radiology results, the need for outpatient follow up, to return to the emergency department if symptoms worsen or persist or if there are any questions or concerns that arise at home. Special discussion: Based on the patient's Hx, exam, and Dx evaluation, there is no indication for emergent surgery or inpatient Tx. It is understood by the patient/guardian that if the Sx's persist or worsen they need to return immediately for re-evaluation. I have referred the patient to see his PCP for further evaluation of high blood pressure. Based on the history and exam findings, there is no indication for further emergent testing or inpatient evaluation. I discussed with the patient/guardian the need to see the primary care provider for further evaluation of the symptoms. 12/21 10:10 Order name: CT Stone Protocol; Complete Time: 11:06 snw Administered Medications: No medications were administered Disposition: 15:51 Co-signature as Attending Physician, Higinio Richardson MD. rn Disposition: 12/21/19 11:33 Discharged to Home. Impression: Enlarged prostate, Inguinal hernia, Other abdominal pain. - Condition is Stable. - Discharge Instructions: Abdominal Pain, Adult, Benign Prostatic Hypertrophy, Hypertension, Inguinal Hernia, Adult, Form - Blood Pressure Record Sheet. - Prescriptions for Bentyl 20 mg Oral Tablet - take 1 tablet by ORAL route every 6 hours As needed; 20 tablet. - Medication Reconciliation Form, Thank You Letter, Antibiotic Education, Prescription Opioid Use form. - Follow up: Emergency Department; When: As needed; Reason: Worsening of condition. Follow up: Private Physician; When: 2 - 3 days; Reason: Recheck today's complaints, Continuance of care, Re-evaluation by your physician. Signatures: Dispatcher [employer] EDMS Maddy Daly, LIGHTING ENGINEERING TECHNICIAN-C LIGHTING ENGINEERING TECHNICIAN-Csnw Higinio Richardson MD MD rn Smirch, Shelby, RN RN Eli Bahena RN RN rb1 Corrections: (The following items were deleted from the chart) 12:05 11:33 12/21/2019 11:33 Discharged to Home. Impression: Enlarged prostate; Inguinal rb1 hernia; Other abdominal pain. Condition is Stable. Forms are Medication Reconciliation Form, Thank You Letter, Antibiotic Education, Prescription Opioid Use. Follow up: Emergency Department; When: As needed; Reason: Worsening of condition. Follow up: Private Physician; When: 2 - 3 days; Reason: Recheck today's complaints, Continuance of care, Re-evaluation by your physician. snw
--- NOTE | 2019-12-21 11:34 | ER ---
Nurse's Notes [facility] Name: Genaro Trinh Age: 64 yrs Sex: Male : 1955 Arrival Date: 12/21/2019 Time: 08:32 Bed 18 Private MD: Diagnosis: Enlarged prostate;Inguinal hernia;Other abdominal pain Presentation: 12/21 08:43 Presenting complaint: Patient states: R sided abd pain that comes and goes x > 1 year. ss Pt reports that his PCP told him that it was his shingles, but does not think it is because his rash has been gone for over a year. Pt states he is here today because his pain is worse. Hx of appy and ernesto. Transition of care: patient was not received from another setting of care. Onset of symptoms was 2018. Risk Assessment: Do you want to hurt yourself or someone else? Patient reports no desire to harm self or others. Initial Sepsis Screen: Does the patient meet any 2 criteria? No. Patient's initial sepsis screen is negative. Does the patient have a suspected source of infection? No. Patient's initial sepsis screen is negative. Care prior to arrival: None. 08:43 Method Of Arrival: Ambulatory 08:43 Acuity: LG 3 ss Historical: - Allergies: 08:46 NKA; ss - PMHx: 08:46 Hypertension; ss - PSHx: 08:46 Heart stents; Cholecystectomy; Appendectomy; ss - Immunization history:: Adult Immunizations up to date. - Coronavirus screen:: The patient has NOT traveled to [place], [place], or [place] in the past 14 days. Proceed with normal triage process as indicated. - Social history:: Smoking status: Patient/guardian denies using tobacco, but has a distant history of tobacco abuse. - Ebola Screening: : Patient denies exposure to infectious person Patient denies travel to an Ebola-affected area in the 21 days before illness onset. Screenin:45 Abuse screen: Denies threats or abuse. Nutritional screening: No deficits noted. rb1 Tuberculosis screening: No symptoms or risk factors identified. Fall Risk None identified. Assessment: 09:45 General: Appears in no apparent distress. comfortable, Behavior is calm, cooperative. rb1 Pain: Complains of pain in right lower quadrant Pain currently is 8 out of 10 on a pain scale. Pain began 3-4 months ago. Neuro: Level of Consciousness is awake, alert, obeys commands, Oriented to person, place, time, situation. Cardiovascular: Capillary refill < 3 seconds is brisk in bilateral fingers. Respiratory: Airway is patent Respiratory effort is even, unlabored, Respiratory pattern is regular, symmetrical. GI: Bowel sounds present X 4 quads. Abdomen is tender to palpation in right lower quadrant. : No signs and/or symptoms were reported regarding the genitourinary system. Derm: Skin is pink, warm \T\ dry. 10:45 Reassessment: Patient appears in no apparent distress at this time. No changes from rb1 previously documented assessment. 11:45 Reassessment: Patient appears in no apparent distress at this time. Patient and/or rb1 family updated on plan of care and expected duration. Pain level reassessed. Patient is alert, oriented x 3, equal unlabored respirations, skin warm/dry/pink. Vital Signs: 08:46 BP 179 / 97; Pulse 84; Resp 16; Temp 97.6(O); Pulse Ox 96% on R/A; Weight 80.74 kg; ss Height 5 ft. 3 in. (160.02 cm); Pain 8/10; 09:45 BP 171 / 118; Pulse 81; Resp 19; Pulse Ox 96% on R/A; Pain 8/10; rb1 10:45 BP 190 / 85; Pulse 88; Resp 18; Pulse Ox 95% on R/A; Pain 8/10; rb1 11:45 BP 173 / 94; Pulse 86; Resp 17; Pulse Ox 97% on R/A; rb1 08:46 Body Mass Index 31.53 (80.74 kg, 160.02 cm) ED Course: 08:32 Patient arrived in ED. ag5 08:45 Triage completed. ss 08:46 Arm band placed on right wrist. ss 09:41 Maddy Daly FNP-C is PHCP. snw 09:41 Higinio Richardson MD is Attending Physician. snw 09:45 Patient has correct armband on for positive identification. Bed in low position. Call rb1 light in reach. Side rails up X 1. Pulse ox on. NIBP on. 10:25 CT Stone Protocol In Process Unspecified. EDMS 10:52 Eli Butts, RN is Primary Nurse. rb1 12:03 No provider procedures requiring assistance completed. Patient did not have IV access rb1 during this emergency room visit. Administered Medications: No medications were administered Outcome: 11:33 Discharge ordered by . barron 12:03 Discharged to home ambulatory. rb1 12:03 Condition: stable 12:03 Discharge instructions given to patient, Instructed on discharge instructions, follow up and referral plans. medication usage, Demonstrated understanding of instructions, follow-up care, medications, Prescriptions given X 1. 12:05 Patient left the ED. rb1 Signatures: Dispatcher [employer] EDUT Maddy Daly, NURSE ASSISTANT-C NURSE ASSISTANT-Kristoferw Codie Gonzalez, RN RN ss Eli Butts, RN RN rb1 Jose Angel Hernandez ag5
[2019-12-21 16:12] VITALS: TEMP 97.6
[2019-12-21 16:16] VITALS: BP 173/94; O2SAT 97
== END 2019-12-21 12:05 | disposition home or self-care (01) ==
LOC: ER 08:28
DX: K40.90 Unilateral inguinal hernia, without obstruction or gangrene, not specified as recurrent (principal); N40.0 Benign prostatic hyperplasia without lower urinary tract symptoms
CPT/HCPCS: 74176; 76377; 99283

== ENCOUNTER 2020-01-08 07:35 | Day surgery (SDC) | payer BC, OTHER ==
[2020-01-05 12:18] LABS: Potassium 4.4 mmol/L (3.5-5.1)
--- NOTE | 2020-01-05 12:22 | RAD REPORT ---
EXAM DESCRIPTION: RAD - Chest Pa And Lat (2 Views) - 01/05/2020 12:12 pm CLINICAL HISTORY: pre op COMPARISON: Chest Single View dated 11/30/2019 TECHNIQUE: Frontal and lateral views of the chest were obtained. FINDINGS: The lungs are clear of acute infiltrate or mass. Interstitial markings are prominent but n ot clearly different from prior imaging. Heart size is normal and central vasculature is within nor mal limits. No pleural effusion or pneumothorax seen. No acute bony finding noted. No aortic abnor mality. IMPRESSION: No acute cardiopulmonary process. No identifiable change from prior imaging.
[2020-01-05 12:25] LABS: Absolute Lymphocytes (CBC) 2.5 K/uL (0.7-4.9); Basophils % 0.8 % (0-1.3); Hematocrit 47.8 % (39.6-49.0); MPV 9.5 fL (7.6-11.3)
--- NOTE | 2020-01-05 13:33 | EKG ---
Test Date: 2020-01-05 Test Time: 11:49:46 Mag[employer] Developer: FABBY MEASUREMENT RESULTS: Intervals: Rate: 67 WV: 140 QRSD: 74 QT: 388 QTc: 409 Quimby: P: 73 WV: 140 QRS: 75 T: 76 INTERPRETIVE STATEMENTS: Sinus rhythm with premature atrial complexes Otherwise normal ECG Compared to ECG 11/30/2019 16:18:31 Atrial premature complex(es) now present Sinus bradycardia no longer present Electronically Signed On 01-05-20 13:32:22 ASSOCIATE CHIEF NURSE by Saad Clay
[2020-01-08] MEDS ORDERED: CEFAZOLIN/SWI 1gm 1 GM/10 ML SYR ONE (08:04)
[2020-01-08] MEDS ORDERED: Ringers Lactate 1,000 ML IV ONE ×2 (08:04→12:31)
[2020-01-08] MEDS ORDERED: propofoL 200 MG/20 ML VIAL IV ONE (08:11)
[2020-01-08] MEDS ORDERED: LIDOCAINE 1% MPF 5 ML VIAL ONE (08:12)
[2020-01-08] MEDS ORDERED: FENTANYL CITR 100 MCG/2 ML ONE (08:12)
[2020-01-08] MEDS ORDERED: ROCURONIUM 50 MG/5 ML VIAL IV ONE (08:12)
[2020-01-08] MEDS ORDERED: MIDAZOLAM HCL 2 MG/2 ML INJ ONE (08:12)
[2020-01-08] MEDS ORDERED: NS 0.9% VIAL 10 ML ONE (09:15)
[2020-01-08] MEDS ORDERED: EPHEDRINE SULF 50 MG/ML VIAL ONE (09:15)
[2020-01-08] MEDS ORDERED: ONDANSETRON 4 MG/2 ML VIAL ONE (09:23)
[2020-01-08] MEDS ORDERED: GLYCOPYRROLATE 0.2 MG/ML SYR ONE (09:23)
[2020-01-08] MEDS ORDERED: KETOROLAC 30 MG/ML INJ ONE (09:23)
[2020-01-08] MEDS ORDERED: NEOSTIGMINE 1 MG/ML -5 ML ONE (09:23)
--- NOTE | 2020-01-08 10:05 | P.BOP ---
Preoperative diagnosis: Bilateral inguinal hernias Postoperative diagnosis: same Primary procedure: Laparoscopic repair of bilateral inguinal hernias with mesh Compliance Tester: Fior Degroot) Estimated blood loss: <10cc Specimen: none Findings: as aboe Anesthesia: General Complications: None Implants: 3d mesh bilateral Condition: Good
[2020-01-08] MEDS ORDERED: PROMETHAZINE INJ 25 MG/ML AMP ONE (10:22)
[2020-01-08] MEDS: HYDROMORPHONE HCL 1 MG/ML INJ ONE ×2 (10:23→10:30)
[2020-01-08] MEDS ORDERED: HYDROCODONE/APAP 7.5/325 MG TAB ONE (11:50)
[2020-01-08 14:03] VITALS: BP 150/74; TEMP 97.2; O2SAT 95
--- NOTE | 2020-01-08 23:28 | DS ---
Date of Discharge: 01/08/2020 Diagnoses: Bilateral inguinal hernias. Procedures: Laparoscopic repair right and left inguinal hernia with mesh. Disposition: Home. Activity: As tolerated. No heavy lifting. Followup: Follow up in my office in 1 week. Call for appointment [phone]. Discharge Instructions: Keep area dry for 48 hours, then may remove outer dressings and shower. Desmond derick Steri-Strip intact. Cold compress over the bilateral inguinal region for 24 hours. Medications: Include hydrocodone q.4 hours p.r.n. pain. BONNY/ILDA Voice ID: [id number] Report ID: [id number]
--- NOTE | 2020-01-08 23:28 | OP ---
Surgeon: Juan Ramon Grubbs MD Vp Of Customer Experience Strategy: JERMAINE Terrazas. Diagnosis: Bilateral inguinal hernia, tender. Postoperative Diagnosis: Bilateral inguinal hernia, tender. Procedure: Laparoscopic repair of bilateral inguinal hernias with mesh. Estimated Blood Loss: Less than 10 mL. Specimen: None. Anesthesia: General plus local. Implant: 3D mesh bilateral Indications: This is the case of a male who came to us with bilateral inguinal hernias with incarcer ation of fat. The benefits, alternatives, and risks of repair with mesh fully explained laparoscopic versus open which include, but not limited to infection, bleeding, damage to adjacent structures, an esthesia complication, chronic pain, chronic numbness, recurrence, UT, even . He also understan ds this may not relieve any symptoms. He might need more than one surgical intervention. He underst ood. Also we may be using mesh in that area. The pros and cons of mesh placement were discussed wit h the patient. All the questions were answered to his satisfaction and he did consent for mesh use. Description Of Procedure: The patient was brought to the operating room, placed in supine position. Anesthesia was done without complication. A time-out was called. Abdomen and inguinal area were pr epped and draped in sterile fashion. Local anesthesia was applied in the infraumbilical region. Inc ision was carried down to fascia, until we find anterior rectus sheath. We opened on the right side. The muscle was retracted laterally to expose the posterior rectus sheath. The extraperitoneal spac e was gently developed with the help of blunt dissection and the space maker balloon tipped catheter was placed over the area directed towards the pubis symphysis. With laparoscope in place we proceede d then to inflate the balloon under direct visualization to create the extraperitoneal space. Balloo n was then removed. Area was insufflated. A 5 mm trocar was placed midline between, the first just above the pubis symphysis and the second 1 between the first and the second one. The preperitoneal s pace was then further developed by exposing the inferior epigastric vessels keeping them anterior. C ooper ligament was dissected laterally to the junction with the iliac veins and dissection was contin ued inferiorly to the iliopubic tract, avoiding damage to the femoral branch of the genitofemoral ner ve and lateral femoral cutaneous nerve. The cord structures were carefully skeletonized. Hernia sac was carefully identified. Then, the sac was then removed from the cord structures, reduced back int o the abdominal cavity with the content, which was fatty tissue. No intestines seen in that area. W hen we finished this right side, then we proceeded to go with the left side and dissection was done u sing same technique. Once again, hernia sac identified after the spermatic cord was skeletonized, wa s retracted back into the abdominal cavity. After we have those places dissected carefully and ident ified the area of the defects then we proceeded to placing first in the left side. We proceeded to p lace the mesh, medium mesh 3D. The mesh was placed to cover direct, indirect spaces. The mesh was s ecured in place laterally and superior to the iliopubic tract and inferior medial to the Sebastian ligam ent. The right thigh was done using the same technique. We used SorbaFix to secure this mesh in katrin ce. After securing hemostasis and then we proceeded to deflate the area under direct visualization w hile holding the mesh in position and making sure that the hernia sac does not slip through. Then, i nsufflation was removed. Trocars were removed. Anterior rectus sheath was closed with #1 Vicryl and the skin in subcuticular fashion with 3-0 chromic and skin in subcuticular fashion. Patient tolerat ed the procedure well. Patient was sent to recovery in stable condition. At the end of the case, te sticles were in the scrotum. The sponge count and instrument counts. BONNY/ILDA Voice ID: [id number] Report ID: [id number]
== END 2020-01-08 13:28 | disposition home or self-care (01) ==
LOC: OR 07:35
PROVIDERS: ATTEND Surgery
PROC: 0YUA4JZ Supplement Bilateral Inguinal Region with Synthetic Substitute, Percutaneous Endoscopic Approach (ICD-10-PCS; principal; 2020-01-08 09:15)
DX: K40.20 Bilateral inguinal hernia, without obstruction or gangrene, not specified as recurrent (principal); I10 Essential (primary) hypertension; I51.9 Heart disease, unspecified; Z95.5 Presence of coronary angioplasty implant and graft; Z90.49 Acquired absence of other specified parts of digestive tract
CPT/HCPCS: 49650; 93005; 85025; 80048; 36415; 71046; J2704; J2550; J2250; J3010; J1170; J2710; J0690; J7120 ×2; J2405

== ENCOUNTER 2020-07-10 09:10 | Emergency (ER) | payer BC, OTHER ==
[2020-07-10 10:10] LABS: Absolute Lymphocytes (CBC) 1.8 K/uL (0.7-4.9); Basophils % 0.5 % (0-1.3); Hematocrit 43.1 % (39.6-49.0); Lymphocytes % 12.7 % (15.3-44.8); MPV 9.1 fL (7.6-11.3)
[2020-07-10 10:13] LABS: Protime INR 0.99
[2020-07-10 10:21] LABS: ALT/SGPT 26 U/L (12-78); AST/SGOT 19 U/L (15-37); Alkaline Phosphatase 30 U/L (45-117); BUN Blood Urea Nitrogen 19 mg/dL (7-18); Bicarbonate 30 mmol/L (21-32); Bilirubin Direct 0.2 mg/dL (0-0.2); Bilirubin Total 0.9 mg/dL (0.2-1.0); Glucose Level 92 mg/dL (74-106); Magnesium 2.4 mg/dL (1.8-2.4); NT PRO-BNP 19 pg/mL (<125); Potassium 3.9 mmol/L (3.5-5.1); Protein, Total 8.1 g/dL (6.4-8.2); Sodium Level 135 mmol/L (136-145); Troponin (Emerg Dept Use Only) < 0.02 ng/mL (0.0-0.045)
--- NOTE | 2020-07-10 10:35 | ER ---
Nurse's Notes [facility] Name: Genaro Trinh Age: 65 yrs Sex: Male : 1955 Arrival Date: 07/10/2020 Time: 09:12 Bed 14 Private MD: Diagnosis: Hypotension, unspecified-resolved Presentation: 07/10 09:23 Chief complaint: Patient states: was at work and got hot and nauseated, sat down, iw coworkers called EMS to check him out, BP was low (70/40) had him lay down, BP normalized after 5-10 minutes, pt feels better now but was told to come get checked out. Ebola Screen: Patient negative for fever greater than or equal to 101.5 degrees Fahrenheit, and additional compatible Ebola Virus Disease symptoms Patient denies exposure to infectious person. Patient denies travel to an Ebola-affected area in the 21 days before illness onset. No symptoms or risks identified at this time. Initial Sepsis Screen: Does the patient meet any 2 criteria? No. Patient's initial sepsis screen is negative. Does the patient have a suspected source of infection? No. Patient's initial sepsis screen is negative. Risk Assessment: Do you want to hurt yourself or someone else? Patient reports no desire to harm self or others. Onset of symptoms was July 10, 2020. 09:23 Method Of Arrival: Ambulatory iw 09:23 Acuity: LG 3 iw 10:50 Coronavirus screen: Client denies travel out of the [place] in the last 14 days. At this jr10 time, the client does not indicate any symptoms associated with coronavirus-19. Historical: - Allergies: 09: NKA; iw - Home Meds: : aspirin 81 mg Oral TbEC 1 tab once daily [Active]; Fish Oil 1,000 mg Oral cap twice a iw day [Active]; lisinopril 20 mg Oral tab 1 tab once daily [Active]; niacin 500 mg Oral cpER [Active]; - PMHx: : Hypertension; iw - PSHx: : Heart stents; Cholecystectomy; Appendectomy; iw - Immunization history:: Adult Immunizations up to date. - Social history:: Smoking status: unknown. Screenin:52 Abuse screen: Denies threats or abuse. Denies injuries from another. Nutritional jr10 screening: No deficits noted. Tuberculosis screening: No symptoms or risk factors identified. Fall Risk IV access (20 points). Assessment: 09:35 General: Appears in no apparent distress. Behavior is calm, cooperative, appropriate jr10 for age. Pain: Denies pain. Neuro: No deficits noted. Level of Consciousness is awake, alert, obeys commands, Oriented to person, place, time, situation, Appropriate for age. Cardiovascular: No deficits noted. Denies chest pain, lightheadedness, nausea, palpitations, shortness of breath, Rhythm is sinus rhythm. Respiratory: No deficits noted. Airway is patent Respiratory effort is even, unlabored, Respiratory pattern is regular, symmetrical. GI: No deficits noted. No signs and/or symptoms were reported involving the gastrointestinal system. Abdomen is non-distended. : No deficits noted. No signs and/or symptoms were reported regarding the genitourinary system. EENT: No deficits noted. No signs and/or symptoms were reported regarding the EENT system. Derm: No deficits noted. No signs and/or symptoms reported regarding the dermatologic system. Musculoskeletal: No deficits noted. No signs and/or symptoms reported regarding the musculoskeletal system. Vital Signs: 09:27 BP 134 / 72; Pulse 74; Resp 16; Temp 98.2; Pulse Ox 100% on R/A; jr10 09:50 BP 132 / 78 Supine; Pulse 74; jr10 09:52 BP 151 / 82 Sitting; Pulse 74; jr10 09:54 BP 121 / 82 Standing (man/); Pulse 69; jr10 10:49 BP 114 / 67; Pulse 78; Resp 20; Pulse Ox 99% on R/A; Pain 0/10; jr10 09:54 pt denies any dizziness, weakness, visusal changes upon standing jr10 ED Course: 09:12 Patient arrived in ED. ds1 09:14 Mahnaz Rehman FNP-C [facility]. kb 09:15 Juan Antonio Alcantara MD is Attending Physician. kb 09:23 Ashely Fonseca RN is Primary Nurse. jr10 09:25 Triage completed. iw 09:53 Patient has correct armband on for positive identification. Bed in low position. Call jr10 light in reach. Side rails up X2. compliance monitor on. Pulse ox on. NIBP on. 09:53 No provider procedures requiring assistance completed. Inserted saline lock: 20 gauge jr10 in left forearm, using aseptic technique. IV is patent, is intact, with good blood return, Flushed. 10:49 IV discontinued, intact, bleeding controlled, No redness/swelling at site. Pressure jr10 dressing applied. Administered Medications: No medications were administered Outcome: 10:33 Discharge ordered by . kelley 10:49 Discharged to home ambulatory. jr10 10:49 Condition: good 10:49 Discharge instructions given to patient, Instructed on discharge instructions, follow up and referral plans. Demonstrated understanding of instructions, follow-up care. 10:50 Patient left the ED. jr10 Signatures: Mahnaz Rehman, DEVELOPMENT EDUCATOR-C DEVELOPMENT EDUCATOR-Ckb Janeth Aguirre ds1 Lisa Page, RN RN iw Ashely Fonseca RN RN jr10 Corrections: (The following items were deleted from the chart) 09:54 09:27 BP 134 / 72; Pulse 74bpm; Resp 16bpm; Pulse Ox 100% RA; iw jr10
--- NOTE | 2020-07-10 10:35 | EDPHYS ---
Physician Documentation [facility] Name: Genaro Trinh Age: 65 yrs Sex: Male : 1955 Arrival Date: 07/10/2020 Time: 09:12 Bed 14 Private MD: ED Physician Juan Antonio Alcantara HPI: 07/10 10:26 This 65 yrs old Male presents to ER via Ambulatory with complaints of Nausea. kb 10:26 The patient presents to the emergency department with nausea. Onset: The kb symptoms/episode began/occurred just prior to arrival. Possible causes: unknown. The symptoms are aggravated by nothing. The symptoms are alleviated by nothing. Associated signs and symptoms: Pertinent positives: nausea, Pertinent negatives: abdominal pain, anorexia, belching, constipation, diarrhea, dysuria, fever, flatulence, GI bleeding, hematuria, vomiting. Severity of symptoms: At their worst the symptoms were mild moderate in the emergency department the symptoms have resolved. The patient has not experienced similar symptoms in the past. The patient has not recently seen a physician. Pt reports he was walking to his office at work and started feeling a hot flash and nauseated. States he sat down for a minutes, but symptoms didn't get better so he went up to get his temperature taken. States they had him sit and called medical to come check him out. Reports BP 70s/40s initially, then 120s/70s on recheck about 10 minutes later. States he feels fine now, but they told him to come get checked out anyway. Historical: - Allergies: : NKA; iw - Home Meds: : aspirin 81 mg Oral TbEC 1 tab once daily [Active]; Fish Oil 1,000 mg Oral cap twice a iw day [Active]; lisinopril 20 mg Oral tab 1 tab once daily [Active]; niacin 500 mg Oral cpER [Active]; - PMHx: : Hypertension; iw - PSHx: : Heart stents; Cholecystectomy; Appendectomy; iw - Immunization history:: Adult Immunizations up to date. - Social history:: Smoking status: unknown. ROS: 10:25 Constitutional: Negative for fever, chills, and weight loss, Cardiovascular: Negative kb for chest pain, palpitations, and edema, Respiratory: Negative for shortness of breath, cough, wheezing, and pleuritic chest pain, Back: Negative for injury and pain, MS/Extremity: Negative for injury and deformity, Skin: Negative for injury, rash, and discoloration, Neuro: Negative for headache, weakness, numbness, tingling, and seizure. 10:25 Abdomen/GI: Positive for nausea, Negative for abdominal pain, vomiting, diarrhea, constipation. Exam: 10:17 Constitutional: This is a well developed, well nourished patient who is awake, alert, kb and in no acute distress. Head/Face: Normocephalic, atraumatic. Eyes: Pupils equal round and reactive to light, extra-ocular motions intact. Lids and lashes normal. Conjunctiva and sclera are non-icteric and not injected. Cornea within normal limits. Periorbital areas with no swelling, redness, or edema. ENT: Nares patent. No nasal discharge, no septal abnormalities noted. Tympanic membranes are normal and external auditory canals are clear. Oropharynx with no redness, swelling, or masses, exudates, or evidence of obstruction, uvula midline. Mucous membranes moist. Neck: Trachea midline, no thyromegaly or masses palpated, and no cervical lymphadenopathy. Supple, full range of motion without nuchal rigidity, or vertebral point tenderness. No Meningismus. Chest/axilla: Normal chest wall appearance and motion. Nontender with no deformity. No lesions are appreciated. Cardiovascular: Regular rate and rhythm with a normal S1 and S2. No gallops, murmurs, or rubs. Normal PMI, no JVD. No pulse deficits. Respiratory: Lungs have equal breath sounds bilaterally, clear to auscultation and percussion. No rales, rhonchi or wheezes noted. No increased work of breathing, no retractions or nasal flaring. Abdomen/GI: Soft, non-tender, with normal bowel sounds. No distension or tympany. No guarding or rebound. No evidence of tenderness throughout. Skin: Warm, dry with normal turgor. Normal color with no rashes, no lesions, and no evidence of cellulitis. MS/ Extremity: Pulses equal, no cyanosis. Neurovascular intact. Full, normal range of motion. Neuro: Awake and alert, GCS 15, oriented to person, place, time, and situation. Cranial nerves II-XII grossly intact. Motor strength 5/5 in all extremities. Sensory grossly intact. Cerebellar exam normal. Normal gait. 10:17 ECG was reviewed by the Attending Physician. Vital Signs: 09:27 BP 134 / 72; Pulse 74; Resp 16; Temp 98.2; Pulse Ox 100% on R/A; jr10 09:50 BP 132 / 78 Supine; Pulse 74; jr10 09:52 BP 151 / 82 Sitting; Pulse 74; jr10 09:54 BP 121 / 82 Standing (man/); Pulse 69; jr10 10:49 BP 114 / 67; Pulse 78; Resp 20; Pulse Ox 99% on R/A; Pain 0/10; jr10 09:54 pt denies any dizziness, weakness, visusal changes upon standing jr10 MDM: 09:23 Patient medically screened. kb 10:17 Data reviewed: vital signs, nurses notes. Data interpreted: Pulse oximetry: on room air kb is 100 %. Interpretation: normal. 10:28 Counseling: I had a detailed discussion with the patient and/or guardian regarding: the kb historical points, exam findings, and any diagnostic results supporting the discharge/admit diagnosis, lab results, the need for outpatient follow up, a family practitioner, to return to the emergency department if symptoms worsen or persist or if there are any questions or concerns that arise at home. 10:29 ED course: Pt reports he recently had a full cardiac workup with Renee and everything kb was good.. 07/10 09:24 Order name: Basic Metabolic Panel; Complete Time: 10:22 kb 07/10 09:24 Order name: CBC with Diff; Complete Time: 10:11 kb 07/10 09:24 Order name: LFT's; Complete Time: 10:22 kb 07/10 09:24 Order name: Magnesium; Complete Time: 10:22 kb 07/10 09:24 Order name: NT PRO-BNP; Complete Time: 10:22 kb 07/10 09:24 Order name: PT-INR; Complete Time: 10:21 kb 07/10 09:24 Order name: Troponin (emerg Dept Use Only); Complete Time: 10:22 kb 07/10 09:24 Order name: EKG; Complete Time: 09:25 kb 07/10 09:24 Order name: Cardiac monitoring; Complete Time: 09:52 kb 07/10 09:24 Order name: EKG - Nurse/Tech; Complete Time: 09:52 kb 07/10 09:24 Order name: IV Saline Lock; Complete Time: 09:52 kb 07/10 09:24 Order name: Labs collected and sent; Complete Time: 09:52 kb 07/10 09:24 Order name: O2 Per Protocol; Complete Time: 09:52 kb 07/10 09:24 Order name: O2 Sat Monitoring; Complete Time: 09:52 kb 07/10 09:24 Order name: Orthostatics; Complete Time: 09:51 kb EC:17 Rate is 65 beats/min. Rhythm is regular. QRS [place] is Normal. GA interval is normal at kb 148 msec. QRS interval is normal at 78 msec. QT interval is normal at 386 msec. Administered Medications: No medications were administered Disposition: 07/11 08:52 Co-signature as Attending Physician, Juan Antonio Alcantara MD I agree with the assessment and kdr plan of care. Disposition: 07/10/20 10:33 Discharged to Home. Impression: Hypotension, unspecified - resolved. - Condition is Stable. - Discharge Instructions: Near-Syncope, [id number], Hypotension, [id number]-[id number]. - Medication Reconciliation Form, Thank You Letter, Antibiotic Education, Prescription Opioid Use form. - Follow up: Emergency Department; When: As needed; Reason: Worsening of condition. Follow up: Private Physician; When: 2 - 3 days; Reason: Recheck today's complaints, Continuance of care, Re-evaluation by your physician. Signatures: Dispatcher [employer] EDMS Mahnaz Rehman, MECH[employer]IC GENER[employer]PERATIONAL TEST-C MECH[employer]IC GENERAL [employer]PERATIONAL TEST-Juan Antonio Santos MD MD [facility] Lisa Page RN RN Ashely Chairez RN RN jr10 Corrections: (The following items were deleted from the chart) 07/10 10:50 10:33 07/10/2020 10:33 Discharged to Home. Impression: Hypotension, unspecified - jr10 resolved. Condition is Stable. Discharge Instructions: Near-Syncope, [id number], Hypotension, [id number]. Forms are Medication Reconciliation Form, Thank You Letter, Antibiotic Education, Prescription Opioid Use. Follow up: Emergency Department; When: As needed; Reason: Worsening of condition. Follow up: Private Physician; When: 2 - 3 days; Reason: Recheck today's complaints, Continuance of care, Re-evaluation by your physician. kb
[2020-07-10 10:57] VITALS: TEMP 98.2
[2020-07-10 11:02] VITALS: BP 114/67; O2SAT 99
--- NOTE | 2020-07-11 08:43 | EKG ---
Test Date: 2020-07-10 Test Time: 09:40:18 Lead Javascript Engineer: ROMINA MEASUREMENT RESULTS: Intervals: Rate: 65 MI: 148 QRSD: 78 QT: 386 QTc: 401 [place]: P: 78 MI: 148 QRS: 76 T: 78 INTERPRETIVE STATEMENTS: Normal sinus rhythm Normal ECG Compared to ECG 01/05/2020 11:49:46 Atrial premature complex(es) no longer present Electronically Signed On 07-11-20 08:38:38 CDT by Jakub Duran
== END 2020-07-10 10:50 | disposition home or self-care (01) ==
LOC: ER 09:10
DX: R11.0 Nausea (principal); I10 Essential (primary) hypertension; Z95.818 Presence of other cardiac implants and grafts; Z79.82 Long term (current) use of aspirin
CPT/HCPCS: 36415; 80048; 80076; 83735; 83880; 84484; 85025; 85610; 93005; 99284